=== PATIENT | female | born 1990 | race Caucasian/White ===

== ENCOUNTER 2020-04-07 22:26 | Observation (INO) | payer OTHER, MEDICAID, SELFPAY ==
[2020-04-07 22:51] VITALS: BP 132/71; PULSE 100; RESP 18; TEMP 36.9; O2SAT 100; BMI 24.3
[2020-04-08] VITALS (16 sets, daily range): BP systolic 105–137; BP diastolic 54–94; PULSE 82–118; RESP 14–21; TEMP 36.7–37.6; O2SAT 97–100; BMI 24.3; BMI 26.3
--- NOTE | 2020-04-08 00:31 | ED.SKABFB ---
HPI - Skin/Abscess/Foreign Bdy General Chief complaint: Skin/Abscess/Foreign Body Stated complaint: left hand swelling and redness for past weel Time Seen by Provider: 04/07/20 22:48 Source: patient Mode of arrival: Ambulatory Limitations: no limitations History of Present Illness HPI narrative: 29-year-old female smoker and user of IV drugs presents with a chief complaint of rapidly worsening pain and swelling with redness on the dorsum of her left hand for the past few days. She denies systemic findings such as fever, chills nor nausea or vomiting. She denies any significant history skin infections. States that she had been ?skin popping ?and must have missed. It is hard for her to close her fist and there is notable swelling over the 5th meta carpal. She is otherwise well and free of complaint MD complaint: abscess/boil and discoloration Onset (ago): day(s) Tetanus up to date: unsure Location: L hand Severity: moderate Quality: aching Pain Consistency: constant Relieving factors: rest Exacerbating factors: movement Context: IVDA Associated symptoms: denies other symptoms Treatments prior to arrival: none Related Data Previous Rx's Medication Instructions Recorded ondansetron [Zofran ODT] 4 mg SUBLINGUAL Q6HP PRN #12 odt 09/04/17 Allergies Allergy/AdvReac Type Severity Reaction Status Date / Time Sulfa (Sulfonamide Allergy Unknown Verified 04/08/20 01:51 Antibiotics) [SULFA (SULFONAMIDE ANTIBIOTICS)] Review of Systems Constitutional Constitutional: Denies chills, Denies fatigue, Denies fever(s), Denies frequent falls, Denies lethargy and Denies weakness Eyes Eyes: Denies change in vision, Denies eye discharge, Denies irritation and Denies loss of vision ENT Ears, Nose, Mouth, and Throat: Denies change in voice, Denies dizziness, Denies neck pain, Denies sore throat and Denies throat swelling Cardiovascular Cardiovascular: Denies chest pain, Denies irregular heart rhythm, Denies lightheadedness, Denies palpitations, Denies dyspnea, Denies dyspnea on exertion and Denies orthopnea Respiratory Respiratory: Denies cough, Denies dyspnea, Denies dyspnea on exertion and Denies wheezing Gastrointestinal Gastrointestinal: Denies abdominal pain, Denies change in bowel habits, Denies diarrhea, Denies nausea and Denies vomiting Musculoskeletal Musculoskeletal: Denies neck pain and Denies numbness Integumentary/Breasts Skin/Breast: Denies pruritus, Reports erythema, Denies rash, Reports skin pain, Reports skin swelling and Denies wounds Neurologic Neurologic: Denies behavioral changes, Denies confusion, Denies dizziness, Denies frequent falls, Denies loss of vision, Denies numbness and Denies weakness Psychiatric Psychiatric: Denies anxiety, Denies behavioral changes, Denies confusion, Denies depression, Denies homicidal ideation and Denies suicidal ideation Endocrine Endocrine: Denies fatigue, Denies flushing and Denies palpitations Hematologic/Lymphatic Hematologic/Lymphatic: Denies easy bruising Allergic/Immunologic Allergic/Immunologic: Denies urticaria, Denies throat swelling and Denies wheezing Patient History Social History Smoking Status: Current every day smoker Smoking Status: Current every day smoker alcohol intake frequency: 0-2 drinks per day Substance Use Type: marijuana Exam Narrative Exam Narrative: GENERAL: [29] year old patient appears stated age. Well-nourished, well-developed patient, in mild distress. HEAD: Atraumatic. Normocephalic. EYES: Pupils equal round and reactive. Extraocular motions intact. No scleral icterus. No injection or drainage. ENT: Nose without bleeding, purulent drainage. Throat without erythema, tonsillar hypertrophy or exudate. Airway patent. NECK: Trachea midline. Non tender CARDIOVASCULAR: Regular rate and rhythm without murmurs, gallops, or rubs. RESPIRATORY: Clear to auscultation. Breath sounds equal bilaterally. No wheezes, rales, or rhonchi. GASTROINTESTINAL: Abdomen soft, non-tender, nondistended. EXTREMITIES: Notable swelling on the dorsum of the left hand with induration and possible mild fluctuance over the left 5th metacarpal with significant surrounding erythema, even extending proximal to the wrist. There is pain when palpating on the palmar surface raising the suspicion of a deep space infection. BACK: Nontender without deformity or crepitance. No flank tenderness. NEURO: AOx3. SKIN: Otherwise No rash or erythema of visible areas Initial Vital Signs Initial Vital Signs: Vital Signs Temperature 98.5 F 04/07/20 22:51 Pulse Rate 100 H 04/07/20 22:51 Respiratory Rate 18 04/07/20 22:51 Blood Pressure 132/71 04/07/20 22:51 Pulse Oximetry 100 04/07/20 22:51 Course Orders Ordered: ED Orders 04/08/20 00:35 CT UE LT w con Stat 04/08/20 00:40 Basic Metabolic Panel Stat C-Reactive Protein Quant Stat Complete Blood Count AUTO DIFF Stat 04/08/20 00:45 Urine Culture Stat Urine Drug Screen, Rapid Stat Urine Microscopic Stat 04/08/20 01:27 Blood Culture Stat Discontinued Medications Sodium Chloride (Normal Saline 0.9%) 1,000 mls @ 1,000 mls/hr IV BOLUS ONE Stop: 04/08/20 01:34 Last Infusion: 04/08/20 03:05 Dose: 0 mls/hr Documented by: Admin: 04/08/20 01:54 Dose: 1,000 mls/hr Documented by: MATTHEW Vancomycin HCl/Dextrose (Vancomycin) 2,000 mg in 400 mls @ 200 mls/hr IV NOW ONE Stop: 04/08/20 02:36 Last Admin: 04/08/20 01:54 Dose: 200 mls/hr Documented by: MATTHEW Consultations Consultation #1: Dr. Burkett happy to accept. Vanco, pain meds, NPO, he will see her in the morning. Vital Signs Vital signs: Vital Signs - 8 hr 04/07/20 22:51 04/08/20 00:08 04/08/20 00:30 Temperature 98.5 F Pulse Rate 100 H 105 H 93 H Respiratory Rate 18 Blood Pressure 132/71 130/60 Pulse Oximetry 100 100 98 04/08/20 01:06 Temperature Pulse Rate 91 H Respiratory Rate Blood Pressure Pulse Oximetry MDM - Skin/Abscess/Foreign Bdy Lab Data Result diagrams: 04/08/20 00:40 04/08/20 00:40 Labs: Lab Results 04/08/20 04/08/20 04/08/20 Range/Units 00:40 00:40 00:45 WBC 9.4 (4.5-11.0) X10^3/uL RBC 4.88 (4.0-5.2) X10^6/uL Hgb 13.5 (12.0-16.0) g/dL Hct 41.0 (36-46) % MCV 84.0 (80-100) fL MCH 27.7 (26-34) PG MCHC 33.0 (30-36) % RDW 14.5 (11.6-14.8) % Plt Count 264 (150-400) X10^3/uL Neut % (Auto) 71.3 (50-75) % Lymph % (Auto) 17.0 L (25-40) % [place] % (Auto) 9.5 (3-14) % Eos % (Auto) 1.6 L (2-4) % Baso % (Auto) 0.6 (0-2) % Neut # (Auto) 6700 (8821-8072) /uL Lymph # (Auto) 1600 (2240-9209) /uL [place] # (Auto) 900 (0-900) /uL Eos # (Auto) 200 (0-450) /uL Baso # (Auto) 100 (0-100) /uL Sodium 138 (137-145) mmol/L Potassium 4.0 (3.4-5.1) mmol/L Chloride 99 (98-107) mmol/L Carbon Dioxide 34 H (22-32) mmol/L BUN 11 (7-17) mg/dL Creatinine 0.61 (0.52-1.04) mg/dL Estimated GFR > 60.0 (>60) mL/min BUN/Creatinine Ratio 18.0 (6-22) Glucose 88 (70-100) mg/dL Calcium 9.4 (8.4-10.2) mg/dL C-Reactive Protein 3.2 H (<1.0) mg/dL Urine RBC (0-5/HPF) Urine WBC (0-5/HPF) Ur Squamous Epith Cells (0-5/HPF) Urine Bacteria (None) Hyaline Casts (None) Urine Mucus (Negative) Ur Culture Indicated? U Opiates 300ng/mL cut Positive H (Negative) Ur Oxycodone Screen Negative (Negative) Urine Methadone Screen Negative (Negative) Ur Barbiturates Screen Negative (Negative) U Tricyclic Antidepress Negative (Negative) Ur Phencyclidine Scrn Negative (Negative) Ur Amphetamines Screen Positive H (Negative) U Methamphetamines Scrn Positive H (Negative) Ur MDMA Scrn (Ecstasy) Negative (Negative) U Benzodiazepines Scrn Negative (Negative) Urine Cocaine Screen Negative (Negative) U Marijuana (THC) Screen Positive H (Negative) 04/08/20 Range/Units 00:45 WBC (4.5-11.0) X10^3/uL RBC (4.0-5.2) X10^6/uL Hgb (12.0-16.0) g/dL Hct (36-46) % MCV (80-100) fL MCH (26-34) PG MCHC (30-36) % RDW (11.6-14.8) % Plt Count (150-400) X10^3/uL Neut % (Auto) (50-75) % Lymph % (Auto) (25-40) % [place] % (Auto) (3-14) % Eos % (Auto) (2-4) % Baso % (Auto) (0-2) % Neut # (Auto) (8941-6472) /uL Lymph # (Auto) (3779-3438) /uL [place] # (Auto) (0-900) /uL Eos # (Auto) (0-450) /uL Baso # (Auto) (0-100) /uL Sodium (137-145) mmol/L Potassium (3.4-5.1) mmol/L Chloride (98-107) mmol/L Carbon Dioxide (22-32) mmol/L BUN (7-17) mg/dL Creatinine (0.52-1.04) mg/dL Estimated GFR (>60) mL/min BUN/Creatinine Ratio (6-22) Glucose (70-100) mg/dL Calcium (8.4-10.2) mg/dL C-Reactive Protein (<1.0) mg/dL Urine RBC None seen (0-5/HPF) Urine WBC 5-10/hpf H (0-5/HPF) Ur Squamous Epith Cells 1-5 /hpf (0-5/HPF) Urine Bacteria Few (2-10) H (None) Hyaline Casts 0-1/lpf (None) Urine Mucus 3+ H (Negative) Ur Culture Indicated? Specimen cultured U Opiates 300ng/mL cut (Negative) Ur Oxycodone Screen (Negative) Urine Methadone Screen (Negative) Ur Barbiturates Screen (Negative) U Tricyclic Antidepress (Negative) Ur Phencyclidine Scrn (Negative) Ur Amphetamines Screen (Negative) U Methamphetamines Scrn (Negative) Ur MDMA Scrn (Ecstasy) (Negative) U Benzodiazepines Scrn (Negative) Urine Cocaine Screen (Negative) U Marijuana (THC) Screen (Negative) Point of Care Testing Test Results Negative Urine Dip Bedside Urine Glucose Negative Bedside Urine Bilirubin + 1 Bedside Urine Ketone +/- 5 Urine Specific [place] 1.030 Bedside Urine Occult Blood - Negative Bedside Urine pH 5.5 Bedside Urine Protein + 30 Bedside Urine Urobilinogen - Negative Bedside Urine Nitrite - Negative Bedside Urine Leukocytes +/- [address] UE w/IV Contrast: Radiologist's Impression: Cellulitis of distal forearm and 1.2cm abscess Discharge Plan Departure Patient Disposition: Admitted As Inpatient Clinical Impression: Abscess of dorsum of left hand Admit Date/Time: 04/08/20 03:28 Admit Provider: Jeannette Lemus
--- NOTE | 2020-04-08 00:35 | DI.CT.S_ITS ---
PROCEDURE: CT UE LT W CON INDICATIONS: pain swelling, redness, abscess? TECHNIQUE: After the administration of intravenous contrast, 3 mm axial sections acquired of the left wrist , with coronal and sagittal reformats. COMPARISON: None. FINDINGS: Image quality: Excellent. No fracture or focal osseous destruction. Normal alignment Corticated chronic appearing subcentimeter ossicle seen at the tip of the ulnar styloid. Mild 1st CMC and triscaphe joint degeneration There is dorsal circumferential cellulitis in the subcutaneous soft tissues. 1.2 cm focal fluid collection seen dorsal to the 5th metacarpal on image 158/5, suspicious for abscess. Grossly unremarkable appearance of the flexor and extensor tendons. IMPRESSION: 1.2 cm suspected abscess dorsal to the 5th metacarpal shaft. Diffuse cellulitis involving the distal forearm and dorsal wrist and hand. Findings concordant with the preliminary study interpretation provided at the time of the exam. Dictated by: Ez Lemus M.D. on 04/08/2020 at 8:16 Approved by: Ez Lemus M.D. on 04/08/2020 at 8:22
[2020-04-08 01:16] LABS: RBC Urine None Seen (0-5/HPF)
[2020-04-08 01:21] LABS: Add Manual Diff / Slide Review NO; Basophils Absolute Auto 100 /uL (0-100); Basophils Percent Auto 0.6 % (0-2); Eosinophils Absolute Auto 200 /uL (0-450); Eosinophils Percent Auto 1.6 % (2-4); Hemoglobin 13.5 g/dL (12.0-16.0); Lymphocytes Absolute Auto 1600 /uL (1100-4500); Mean Corpuscular Hemoglobin 27.7 PG (26-34); Monocytes Absolute Auto 900 /uL (0-900); Monocytes Percent Auto 9.5 % (3-14); Neutrophils Absolute Auto 6700 /uL (1500-7000); Neutrophils Percent Auto 71.3 % (50-75); Platelet Count 264 X10^3/uL (150-400); Red Blood Cell Count 4.88 X10^6/uL (4.0-5.2); Red Cell Distribution Width 14.5 % (11.6-14.8); White Blood Cell Count 9.4 X10^3/uL (4.5-11.0)
[2020-04-08 01:22] LABS: Ur Creatinine Normal (Normal); Ur Specific Gravity Normal (Normal); Urine pH Normal (Normal)
[2020-04-08 01:23] LABS: UR Morphine/Opiate cutoff 300 Positive (Negative); Urine Amphetamines Positive (Negative); Urine Barbiturates Negative (Negative); Urine Benzodiazepines Negative (Negative); Urine Cocaine Negative (Negative); Urine MDMA Negative (Negative); Urine Methadone Negative (Negative); Urine Methamphetamines Positive (Negative); Urine Oxycodone Negative (Negative); Urine Phencyclidine Negative (Negative); Urine Tetrahydrocannabinol Positive (Negative); Urine Tricyclic Antidepressant Negative (Negative)
[2020-04-08 01:25] LABS: Squamous Epithelial Cell Urine 1-5 /HPF (0-5/HPF); WBC Urine 5-10/HPF (0-5/HPF)
[2020-04-08 01:26] LABS: Bacteria Urine Few (2-10); Culture Indicated Urine Specimen Cultured; Hyaline Casts Urine 0-1/LPF; Mucus Urine 3+ (Negative)
[2020-04-08 01:29] LABS: Blood Urea Nitrogen 11 mg/dL (7-17); C-Reactive Protein Quant 3.2 mg/dL (<1.0); Calcium 9.4 mg/dL (8.4-10.2); Carbon Dioxide 34 mmol/L (22-32); Chloride 99 mmol/L (98-107); Estimated Glomerular Filt Rate > 60.0 mL/min (>60); Glucose 88 mg/dL (70-100); HEMOLYSIS < 15 (0-50); Sodium 138 mmol/L (137-145)
[2020-04-08] MEDS: SODIUM CHLORIDE 0.9% 1,000 ML 1000 ML IV (01:54)
[2020-04-08] MEDS: VANCOMYCIN 2,000 MG/400 ML PIGGYBACK 200 MG IV (01:54)
[2020-04-08 03:59] LABS: COVID19 -Nasal RAPID Negative (Negative)
[2020-04-08] MEDS: SODIUM CHLORIDE 0.9% 1,000 ML 125 ML IV ×2 (04:19→14:14)
[2020-04-08] MEDS: MORPHINE 2 MG/ML INJ IV ×3 (04:23→14:14)
--- NOTE | 2020-04-08 07:21 | P.HP_ITS ---
History of Present Illness History of Present Illness Date Patient Seen: 04/08/20 Time Patient Seen: 07:22 Chief complaint: left hand swelling and redness for past weel Narrative: 29-year-old female with a left hand abscess. She is right-hand dominant. She uses daily IV drugs and has been skin popping. She reports that she has been having increasing swelling, redness, and pain into the left dorsal hand for the past 3-4 days period finally got so bad that she came into the emergency room last night. She denies any fever or chills or any drainage. She denies any abscesses or pain anywhere else. She was admitted and started on vancomycin. She is still having a fair amount of pain although doing better since she has been admitted. She cannot make a fist. Patient History Family & Social History Social History: household members significant other Prior Living Arrangements Mobile home Safety & Behavioral: Feels Safe in Current Yes Environment Been Physically Hurt or No Threatened By a Person Suicidal Ideation Description None Suicide Plan Description No Plan Tobacco & Substance use: Tobacco type cigarettes,cannabis/marijuana Smoking Status Current every day smoker Smoking packs per day 0.5 alcohol intake current alcohol intake frequency 0-2 drinks per day Substance Use Type marijuana Meds Home Medications and Allergies Home Medications Medication Instructions Recorded Confirmed Type No Known Home Medications 04/08/20 04/08/20 History Allergies Allergy/AdvReac Type Severity Reaction Status Date / Time Sulfa (Sulfonamide Allergy Unknown Verified 04/08/20 01:51 Antibiotics) [SULFA (SULFONAMIDE ANTIBIOTICS)] Review of Systems Constitutional Constitutional: Denies chills and Denies fever(s) Respiratory Respiratory: Denies cough and Denies wheezing Gastrointestinal Gastrointestinal: Denies abdominal pain Genitourinary Genitourinary: Denies difficulty voiding Musculoskeletal Musculoskeletal: Denies tingling Integumentary/Breasts Skin/Breast: Denies rash Neurologic Neurologic: Denies behavioral changes and Denies tingling Psychiatric Psychiatric: Denies behavioral changes Endocrine Endocrine: Denies change in body appearance Hematologic/Lymphatic Hematologic/Lymphatic: Denies easy bleeding Allergic/Immunologic Allergic/Immunologic: Denies wheezing Exam Vital Signs (past 8 hours): - 04/08/20 00:08 04/08/20 00:30 04/08/20 01:06 Temperature Pulse Rate 105 H 93 H 91 H Respiratory Rate Blood Pressure 130/60 Pulse Oximetry 100 98 04/08/20 03:50 Temperature 98.8 F Pulse Rate 89 Respiratory Rate 20 Blood Pressure 123/75 Pulse Oximetry 100 Oxygen Delivery Method Room Air Oxygen Flow Rate 0 Const Orientation: alert and oriented x3 Resp Auscultation: clear to auscultation bilaterally Cardio Rate: regular rate Rhythm: regular rhythm Extrem Other: Left hand 5 cm erythema centered around the dorsal 4th and 5th mid metacarpal. 1.5 cm fluctuant mass over the 5th metacarpal. Intact integument. Easily flexes and extends fingers but painful with trying to make a lubrication technician. Intact sensation through the hand. Good capillary refill distally. Objective Imaging CT scan left-hand: My impression: Shows a 1.5cm fluid collection in the soft tissue on the dorsal aspect of the hand over the middle of the 5th metacarpal. No osteomyelitis changes Labs Result Diagrams: 04/08/20 00:40 04/08/20 00:40 Labs: Laboratory Results - last 24 hr 04/08/20 04/08/20 04/08/20 00:40 00:40 00:45 WBC 9.4 RBC 4.88 Hgb 13.5 Hct 41.0 MCV 84.0 MCH 27.7 MCHC 33.0 RDW 14.5 Plt Count 264 Neut % (Auto) 71.3 Lymph % (Auto) 17.0 L [place] % (Auto) 9.5 Eos % (Auto) 1.6 L Baso % (Auto) 0.6 Neut # (Auto) 6700 Lymph # (Auto) 1600 [place] # (Auto) 900 Eos # (Auto) 200 Baso # (Auto) 100 Sodium 138 Potassium 4.0 Chloride 99 Carbon Dioxide 34 H BUN 11 Creatinine 0.61 Estimated GFR > 60.0 BUN/Creatinine Ratio 18.0 Glucose 88 Calcium 9.4 C-Reactive Protein 3.2 H Urine RBC Urine WBC Ur Squamous Epith Cells Urine Bacteria Hyaline Casts Urine Mucus Ur Culture Indicated? U Opiates 300ng/mL cut Positive H Ur Oxycodone Screen Negative Urine Methadone Screen Negative Ur Barbiturates Screen Negative U Tricyclic Antidepress Negative Ur Phencyclidine Scrn Negative Ur Amphetamines Screen Positive H U Methamphetamines Scrn Positive H Ur MDMA Scrn (Ecstasy) Negative U Benzodiazepines Scrn Negative Urine Cocaine Screen Negative U Marijuana (THC) Screen Positive H COVID-19 PCR 04/08/20 04/08/20 00:45 02:30 WBC RBC Hgb Hct MCV MCH MCHC RDW Plt Count Neut % (Auto) Lymph % (Auto) [place] % (Auto) Eos % (Auto) Baso % (Auto) Neut # (Auto) Lymph # (Auto) [place] # (Auto) Eos # (Auto) Baso # (Auto) Sodium Potassium Chloride Carbon Dioxide BUN Creatinine Estimated GFR BUN/Creatinine Ratio Glucose Calcium C-Reactive Protein Urine RBC None seen Urine WBC 5-10/hpf H Ur Squamous Epith Cells 1-5 /hpf Urine Bacteria Few (2-10) H Hyaline Casts 0-1/lpf Urine Mucus 3+ H Ur Culture Indicated? Specimen cultured U Opiates 300ng/mL cut Ur Oxycodone Screen Urine Methadone Screen Ur Barbiturates Screen U Tricyclic Antidepress Ur Phencyclidine Scrn Ur Amphetamines Screen U Methamphetamines Scrn Ur MDMA Scrn (Ecstasy) U Benzodiazepines Scrn Urine Cocaine Screen U Marijuana (THC) Screen COVID-19 PCR Negative Assessment & Plan Assessment & Plan narrative: Left hand abscess in a patient with IV drug abuse. She has been started on vancomycin. I explained to her that this is large e nough that I recommend surgical irrigation debridement. This is the best way to treat the infection before it spreads further. Risks and benefits of surgery discussed including medical risks with heart attack stroke, DVT, PE, , failure to alleviate infection, ongoing pain, tender nerve injury, need for further surgery. She understands and consents were signed and placed in the chart. We will add her on to today schedule. COVID-19 COVID-19 status: Negative Result date/Date tested (Pos, Neg/Pending): 04/08/20 Quality VTE Deep Vein Thrombosis/Pulmonary Embolism Present on Admission: No
[2020-04-08] MEDS: VANCOMYCIN 1,000 MG/200 ML PIGGYBACK 125 MG IV ×2 (09:31→18:28)
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
[2020-04-08] MEDS: LACTATED RINGERS 1,000 ML 42 ML IV (17:19)
--- NOTE | 2020-04-08 17:30 | PM.PREOP ---
Pre-operative Note COVID-19 COVID-19 status: Negative Result date/Date tested (Pos, Neg/Pending): 04/08/20 Interval Note History & Physical reviewed/Exam performed by Physician: Yes Changes to H&P: No H&P completed within 30 days and has changed as indicated here:: left hand marked
--- NOTE | 2020-04-08 18:24 | SUR.OPER ---
Supine on padded OR bed, head on pillow, arms secured on padded arm boards at <90 degrees abduction, legs uncrossed, safety belt at thigh, tape over blanket over lower legs.
--- NOTE | 2020-04-08 18:32 | PM.OP.1 ---
Operative Date/Time/Diagnoses Date of procedure: 04/08/20 Time of procedure: 18:32 Pre-op diagnosis: Left hand deep abscess Post-op diagnosis: same Procedure & Clinicians Procedure: Incisional debridement of left hand deep abscess Same procedure as scheduled: Yes Indications: 29-year-old female with an abscess in the dorsum of her left hand. It was felt she would benefit from surgical debridement to take care of this. Risks and benefits of surgery discussed appropriate consents obtained. Surgeon: Feliz Burkett Click Yes if Unassisted: Yes Anesthesia Type: General Operative Notes Findings: Purulence Closure Type: non-primary Specimen(s): other (Wound culture) Estimated Blood Loss (mL): 2 Procedure in detail: Patient brought to the operating room and intubated under general anesthesia. Time-out was performed. Her next dose of vancomycin was held for cultures. The left arm was prepped and draped in standard sterile fashion. A 2 cm longitudinal incision was made centered over the abscess over the middle of the 5th metacarpal on the dorsal side. This quickly released approximately 3 mL of purulent material that was cultured and sent to microbiology. This was irrigated. We examined the wound further. There was a deep hole through the soft tissue approximately 1.5 cm in diameter and down over the surface of the extensor tendon but without penetrating through the tendon were down to the bone. This area was sharply debrided with a curette in the superficial tissue. The wound was copiously irrigated. Xeroform gauze was placed into the deep pocket. Nylon sutures were used to root loosely reapproximate the skin with a gauze sticking out. A sterile dressing was placed. She was then extubated and brought to recovery with no complications. Complications: none Post-operative Condition: stable Disposition: PACU Plan for aftercare: Inpatient for IV antibiotics. Awaiting culture results. The hand actually looked better and the surrounding area around the abscess by the time of surgery today so she seems to be responding to the vancomycin and we will keep her on this.
[2020-04-08] MEDS: BUPIVACAINE 0.5% W/ EPI (PF) 30 ML VIAL INJ (18:36)
[2020-04-08] MEDS: SODIUM CHLORIDE 0.9% 1,000 ML, GENTAMICIN 80 MG IRR (18:43)
--- NOTE | 2020-04-08 19:04 | SUR.PHASEI ---
Flat affect, minimal responses to questions asked, L arm elevated on pillows, ice applied. Report to nayan Tariq transported up to room on room air.
--- NOTE | 2020-04-08 19:19 | SUR.PHASEI ---
Pt left with Marciano in room 222, bed low, locked and SCD'S on.
[2020-04-08] MEDS: LACTATED RINGERS 1,000 ML 125 ML IV (19:27)
[2020-04-08] MEDS: DOCUSATE 100 MG CAPSULE PO (20:21)
[2020-04-08] MEDS: HYDROCODONE/ACET 5/325 TABLET 2 TAB PO (22:22)
[2020-04-08] MEDS: HYDROMORPHONE 0.5 MG INJ IV (22:22)
[2020-04-09 00:11] VITALS: BP 108/58; PULSE 112; RESP 16; TEMP 37.2; O2SAT 98
[2020-04-09] MEDS: VANCOMYCIN 1,000 MG/200 ML PIGGYBACK 125 MG IV ×2 (00:48→10:45)
[2020-04-09] MEDS: LACTATED RINGERS 1,000 ML 125 ML IV ×2 (00:51→10:46)
[2020-04-09 05:12] VITALS: BP 111/66; PULSE 103; RESP 16; TEMP 36.9; O2SAT 97
[2020-04-09] MEDS: HYDROCODONE/ACET 5/325 TABLET 2 TAB PO ×3 (05:40→20:00)
--- NOTE | 2020-04-09 05:52 | PC.NURSE ---
Pt slept most of the shift, ice to hand and hand elevated on pillows through the night. Medicated at 0545 with [place] per orders. Pt is moving independently in bed. Yamileth khoury.
--- NOTE | 2020-04-09 07:43 | PM.PNPO.1 ---
Subjective Subjective Date Patient Seen: 04/09/20 Time Patient Seen: 07:43 Interval history: The hand feels different, it is just sharp pain right at the incision site. Exam Vital Signs (past 8 hours): - 04/09/20 00:11 04/09/20 05:12 Temperature 99.0 F 98.5 F Pulse Rate 112 H 103 H Respiratory Rate 16 16 Blood Pressure 108/58 L 111/66 Pulse Oximetry 98 97 Oxygen Delivery Method Room Air Oxygen Flow Rate 0 Const Orientation: alert and oriented x3 Extrem Other: Left hand dressing clean dry intact. easily flexes and extends fingers without difficulty Objective Labs Result Diagrams: 04/08/20 00:40 04/08/20 00:40 Assessment & Plan Post-op Postoperative Procedures: Procedures Operation Date: 04/08/20 17:00 Actual Procedures Side Surgeon p Incision and Drainage Hand Left Feliz Burkett MD status post I&D of left hand abscess. G stain had no organisms and no growth to date on the culture so far. This is presumed Staph as she had responded to the vancomycin with an improvement in her overall hand swelling and erythema between the time I saw her in the morning and in the evening for her surgery. Awaiting culture results. Plan to change dressing tomorrow. If this looks good could possibly discharge home tomorrow or possibly the next day. Quality VTE Deep Vein Thrombosis/Pulmonary Embolism Present on Admission: No
--- NOTE | 2020-04-09 09:20 | PT.IIE ---
Current Diagnoses Cutaneous abscess of left hand (04/08/20) Surgery Performed Operation Date: 04/08/20 17:00 Actual Procedures p Incision and Drainage Hand(Left) - Feliz Burkett MD Physical Therapy Inpatient Evaluation/Re-Eval M1 PT/OT-IP Prior Functional Status Start: 04/09/20 11:23 Freq: NEEDED Status: Active Protocol: Document 04/09/20 09:20 AB (Rec: 04/09/20 11:33 AB [email or web address]) Medical Review Prior Functional Status Medical History Reviewed Yes Communication able to make needs known Mobility and Gait stated that she is independent with all mobilities and ambulation without AD Social History Household Members significant other Living Arrangements Mobile home Number of Floors (Floors) One Floor Number of Stairs To Enter/Railing? 5 steps to enter with B rails Home Environment Standard Height Toilet,Tub/ Shower Home Equipment Shower Seat with Backrest,Hand Held Shower,Grab Bars In Shower M2 PT-IP Current Condition Start: 04/09/20 11:23 Freq: NEEDED Status: Active Protocol: Document 04/09/20 09:20 AB (Rec: 04/09/20 11:33 AB [email or web address]) Physical Therapy Current Condition Current Condition Evaluation Date 04/09/20 Treatment Diagnosis L dosal hand abscess s/p debridement; generalized weakness Onset Date 04/08/20 M3 PT-IP Subjective Start: 04/09/20 11:23 Freq: NEEDED Status: Active Protocol: Document 04/09/20 09:20 AB (Rec: 04/09/20 11:33 AB [id number]) Subjective Physical Therapy Visit Type Type Initial Evaluation Visit Start Time 09:20 Visit Stop Time 10:29 Total Visit Minutes 26 Notes pt seen for split visits: 920 to 932 and 1015 to 1029 Number of ANALYTICAL STATISTICIAN Visits 0 Physical Therapy Visit Comments Patient Comments agreeable to do PT Therapy Pain Assessment Pain When Pain Assessed At Rest Pain Present Pain Present Pain Reported Location left hand Intensity 7 Scale Used Numeric (0 - 10) Pain Management Techniques Apply Cold,Re-positioning, Timing of Activity with Medications M4 PT-IP Mobility and Gait Start: 04/09/20 11:23 Freq: NEEDED Status: Active Protocol: Document 04/09/20 09:20 AB (Rec: 04/09/20 11:33 AB [email or web address]) PT-Bed Mobility Assessment Supine to Sit Supine to Sit Independent Sit to Supine Sit to Supine Independent PT-Transfer Assessment Sit to and From Stand Sit to and from Stand Independent Equipment Transfer Assistive Device None Transfers Transfer Technique Stand Pivot Transfer Ability Level of Assist Standby Assistance Comments Mobility Comments completed supine<>sit independent. sit to stand independent and ambulated towards the stairs without AD SBA for safety. pt presents with slight gait deviation but without LOB. pt completed up /downs stairs using 1 rail SBA . ambulated back to her room SBA. agreed to stay up on chair. positioned on chair. call light and table placed within reach. informed pt that no PT intervention is need at this time. pt agreed and understood. Gait Assessment Gait Gait Assistance Required: Standby Assistance,1 Person Assist Distance (Feet) 300 Able to Maintain Weight Bearing Status Yes During Gait Assistive Devices Assistive Device None Orthotic/Prosthetic Devices or Brace: No Gait Deviations General Gait Pattern Antalgic Stair Climbing Assessment Evaluation Level of Assist On Stairs Standby Assistance Devices Stair Climbing Assistive Devices Right Railing Technique/Endurance Stair Climbing Direction Ascend and Descend Stair Climbing Technique Step Over Step Number of Steps Climbed 3 Query Text: Stair Climbing Set # Repetitions (reps) 2 Comments Stair Climbing Comments completed up/down 3 steps x 2 sets SBA using one rail PT-Balance Assessment Sitting Balance and Reactions Static Sitting Balance Ability Normal Dynamic Sitting Balance Ability Normal Standing Balance and Reactions Static Standing Balance Ability Good Dynamic Standing Balance Ability Good Device Used without AD M5 PT-IP Objective Assessments Start: 04/09/20 11:23 Freq: NEEDED Status: Active Protocol: Document 04/09/20 09:20 AB (Rec: 04/09/20 11:33 AB [email or web address]) Orientation Orientation/Cognition Level of Alertness Alert Orientation Name,Age,Birthday,Month,Date, Year,Day of Week,Place, Situation Safety Awareness Understands Safety Issues Memory Description No Deficits Noted Gross Range of Motion Lower Extremity ROM Assessment Within Functional Limits Strength Lower Extremity Strength Assessment Within Functional Limits Coordination Assessment Gross Coordination Gross Coordination WNL Muscle Tone Muscle Tone WNL Yes M6 PT-IP Treatment Start: 04/09/20 11:23 Freq: NEEDED Status: Active Protocol: Document 04/09/20 09:20 AB (Rec: 04/09/20 11:33 AB [email or web address]) Physical Therapy Treatment Education Education Provided Safety M7 PT-IP Assessment and Plan Start: 04/09/20 11:23 Freq: NEEDED Status: Active Protocol: Document 04/09/20 09:20 AB (Rec: 04/09/20 11:33 AB [id number]) PT Summary Assessment and Plan Potential Rehabilitation Potential Good Status of Condition at Evaluation Stable Summary Impairments Pain,ROM,Strength,Balance, Coordination,Sensation,Tone, Cognition,Bed Mobility, Transfers,Gait,Activity Tolerance Assessment Summary PT eval completed and no further PT intervention indicated at this time. pt is independent with bed mobility , transfers and ambulation SBA for safety and IV management. pt plans to go home. Frequency of Treatment Frequency Of Treatment Discharge Recommendations To Nursing Amount of Assist Needed Standby Assistance Discharge Recommendations PT Discharge Recommendations Home Transportation Needs at Discharge Private Vehicle
[2020-04-09 10:10] LABS: Vancomycin Trough 6.6 ug/mL (10-20)
[2020-04-09] MEDS: DOCUSATE 100 MG CAPSULE PO ×2 (10:44→21:01)
[2020-04-09] MEDS: VANCOMYCIN TROUGH 1 REQUEST MISC (10:45)
[2020-04-09 12:02] VITALS: BP 118/68; PULSE 90; RESP 16; TEMP 36.6; O2SAT 98
--- NOTE | 2020-04-09 12:43 | PC.NURSE ---
Addendum entered by Mere Horn R.N. 04/09/20 15:32: REPORT GIVEN TO AMANDA HERMOSILLO. NOTIFIED JAIMEE THAT FAX WAS SENT TO DR CHOPRA WHO IS IN A CASE, AND HE IS EXPECTED TO CALL BACK TO BE UPDATED ON EVENTS. JAIMEE STATES THAT HE WILL FOLLOW THROUGH WITH THIS. INTERNET ASSESSOR ALSO UPDATED. Addendum entered by Mere Horn R.N. 04/09/20 14:56: LATE ENTRY: FAX WAS SENT TO DR CHOPRA [place] TO BE TAPED TO HIS SURGICAL SUITE TO NOTIFY HIM AT THE CLOSE OF HIS CURRENT CASE. Addendum entered by Mere Horn R.N. 04/09/20 14:54: POLICE CAME IN AND WERE GIVEN A REPORT BY UZIEL CHARGE NURSE AND BY THIS SHAREPOINT ENGINEER. THEY WENT IN AND SPOKE WITH PATIENT. PATIENT GAVE THEM VERBAL CONSENT TO SEARCH HER BAG. ONE OTHER EMPTY SYRINGE WITHOUT NEEDLE CONFISCATED BY POLICE, THE SYRINGE WITH HEROIN WAS ALSO CONFISCATED BY POLICE. POLICE STATE SHE WILL BE CHARGED VIA MAIL. NO ARREST TO BE MADE AT THIS TIME OR AT TIME OF DISCHARGE. PATIENT GAVE THE POLICE HER ADDRESS. PATIENT'S BAG WAS RETURNED TO PATIENT BY CHARGE NURSE AFTER POLICE SEARCH. Addendum entered by Mere Horn R.N. 04/09/20 14:08: THIS NURSE UPDATED INTERNET ASSESSOR. CHARGE NURSE UZIEL SPOKE WITH CASH NEVAREZ, INSTRUCTED TO NOTIFY POLICE. CHARGE NURSE HAS CALLED, POLICE HAVE NOT YET ARRIVED. PATIENT RESTING IN BED, IVF INFUSING. Original Note: PATIENT HAS BEEN PLEASANT AND COOPERATIVE, INCONT OF LARGE AMT OF URINE AFTER SLEEPING UNTIL 0900 THIS AM. PARTIAL ASSIST FOR BED BATH, GOWN CHANGE. SHE BRUSHED HER TEETH AND HAIR, LINENS CHANGED. PATIENT UP TO RECLINER. AT 1200 PATIENT UP TO HAVE BM, WANTED TO SIT ON WINDOW SEAT BENCH, THIS SHAREPOINT ENGINEER NOTED LARGE PURSE SITTING OPEN NEAR PATIENT. THIS SHAREPOINT ENGINEER REQUESTED DIRECTOR RIVER RESTORATION TO OBTAIN VSS AT THIS TIME AND MONITOR FOR SUSPICIOUS ACTIVITY GIVEN PATIENT'S DRUG HX. DIRECTOR RIVER RESTORATION ASKED PATIENT TO MOVE TO RECLINER FOR VS. PATIENT APPEARED TO TUCK SOMETHING UNDER BLANKET/CUSHION OF WINDOW SEAT. DIRECTOR RIVER RESTORATION FOUND SYRINGE THERE FILLED W/ BROWN SUBSTANCE, PATIENT ADMITS TO HEROIN IN SYRINGE. CARE SPECIALIST UZIEL NOTIFIED. RUSS MIGUEL NOTIFIED. PATIENT AGREED TO ALLOW PURSE AND ALL BELONGINGS TO BE PUT IN BELONGINGS BAG AND STORED IN COORDINATOR OFFICE. SYRINGE WAS PLACED IN BIOHAZARD BAG. CARE SPECIALIST DEMARIO MADISON OF C[employer] NEVAREZ IN QUALITY AND CARMEN FOR FURTHER INSTRUCTION. PATIENT BACK TO BED PER HER PREFERENCE. IVF INFUSING.
[2020-04-09 15:47] VITALS: BP 129/76; PULSE 95; RESP 18; TEMP 36.8; O2SAT 99
[2020-04-09] MEDS: HYDROMORPHONE 0.5 MG INJ IV ×4 (16:02→21:55)
[2020-04-09] MEDS: VANCOMYCIN 1,000 MG/200 ML PIGGYBACK 200 MG IV ×2 (18:14→22:14)
[2020-04-09 23:30] VITALS: BP 109/66; PULSE 82; RESP 16; TEMP 36.4; O2SAT 98
[2020-04-10] MEDS: HYDROCODONE/ACET 5/325 TABLET 2 TAB PO ×3 (00:06→07:57)
[2020-04-10] MEDS: HYDROMORPHONE 0.5 MG INJ IV ×5 (00:14→10:37)
--- NOTE | 2020-04-10 01:57 | PC.NURSE ---
Addendum entered by Alton Sanches R.N. 04/10/20 04:06: Pt's boyfriend was asked to leave at 0400. This RN was unaware the pt had a visitor and discovered him when the CLOTH FRAMER was checking on the pt. In light of todays events, this RN felt it was unsafe to have a visitor in this pt's room due to the risk of her being brought drugs. Upon inspection, here were no obvious S/S of illicit drug use. Both the pt and her boyfriend were cooperative - the boyfriend left soon after he was asked to go. Original Note: Pt pleasant/cooperative. Incontinent of large amount of urine at shift start. Pt states she has been laying in a fully soaked bed for, about two hours. Maybe that's why I have the shakes. When asked why she did not call for help, she stated that, I know everyone is busy. The patient was asked to please use her call light for any needs - she stated understanding. Linens/gown changed, partial bed bath given.
[2020-04-10 04:00] VITALS: BP 109/57; PULSE 74; RESP 16; TEMP 35.9; O2SAT 98
[2020-04-10] MEDS: VANCOMYCIN 1,000 MG/200 ML PIGGYBACK 200 MG IV (04:45)
[2020-04-10] MEDS: HYDROCODONE/ACET 5/325 TABLET 1 TAB PO (07:53)
[2020-04-10 08:00] VITALS: BP 117/68; PULSE 60; RESP 16; TEMP 36.3; O2SAT 98
--- NOTE | 2020-04-10 08:18 | PM.PNPO.1 ---
Subjective Subjective Date Patient Seen: 04/10/20 Time Patient Seen: 08:18 Interval history: She is doing better today. The hand feels achy. She is going through some withdrawal but this is been mitigated with the pain medication. Exam Vital Signs (past 8 hours): - 04/10/20 04:00 Temperature 96.6 F L Pulse Rate 74 Respiratory Rate 16 Blood Pressure 109/57 L Pulse Oximetry 98 Oxygen Delivery Method Room Air Oxygen Flow Rate 0 Const Orientation: alert and oriented x3 Extrem Other: Left hand dressing change in packing removed. No drainage. Incision clean. Objective Labs Result Diagrams: 04/08/20 00:40 04/08/20 00:40 Labs: Laboratory Results - last 24 hr 04/09/20 09:38 Vancomycin Trough 6.6 L Assessment & Plan Post-op Postoperative Procedures: Procedures Operation Date: 04/08/20 17:00 Actual Procedures Side Surgeon p Incision and Drainage Hand Left Feliz Burkett MD She is doing well. Her sensitivities of come back and she is sensitive to clindamycin for both bacteria. I will send her home with a prescription for this as well as a small prescription for Vicodin. We will have social Work try to work on setting her up with a drug abstinence local clinic. Quality VTE Deep Vein Thrombosis/Pulmonary Embolism Present on Admission: No
[2020-04-10] MEDS: DOCUSATE 100 MG CAPSULE PO (10:40)
--- NOTE | 2020-04-10 10:50 | PC.NURSE ---
Am shift Pt is c/o of pain to L hand, available medications given. Dc instructions written by Dr Burkett, When reviewing this with Pt, she became quite tearful, What am I going to do with 10 vicodin, I am going to manage my own pain i guess Referencing heroin, Offered social work to see Pt again for d/c opiate treatment. Pt seems willing. Dicussed importance of followup ABX and f/u appt. Pt agreeable. Declined treatment options and requested IV removed for d/c as ride is waiting. Iv removed. Walked downstairs with Pt.
--- NOTE | 2020-04-11 12:23 | CM.SWNOTE ---
MERCHANDISE BUYER Note Late Entry MERCHANDISE BUYER consult received yesterday; patient is an active IVDU, poly substance, Dr Burkett placed consult request to offer sobriety/treatment options. This MERCHANDISE BUYER met w/patient yesterday, reviewed DCP. Patient seemed forthcoming w/this MERCHANDISE BUYER as she indicated she was likely to use upon DC because she relies on drugs to cope at this time. Patient was able to discuss her life experiences in relation to her use, that I'm tired of being on the hook (addiction). Patient recounts sobriety, having her son and moving in with her parents in [place], she recalls relapse and having her son taken from her, patient reverts to blaming CPS it's not right. Patient hopeful she could get into counseling or addiction treatment but not be forced on to Methadone or Suboxone. Patient admits she lives in a truck w/her bf and has a few home bases where she can shower and keep perishable items. Discussed harm reduction strategies that might include; stop using Meth and continue gradual taper of other substances, seek secure housing w/bf (also uses), get into counselor. Encouraged patient to call [facility] and ask about scheduling w/ [facility] in [place] as this might be a good fit. Also encouraged patient to call/walk in at [id number], they are accepting walk ins still (during COVID-19 pandemic) Tuesdays, arrive in parking lot at 0530 for best chance to secure a new assessment. Retured to patient's room to offer [employer] brochure and she had left. VAMSI Echevarria
== END 2020-04-10 11:10 | disposition home or self-care (01) ==
LOC: ED 04-08 03:23 → AC 04-08 03:35
PROVIDERS: Admitting Provider Orthopaedic Surgery; Emergency Provider Emergency Medicine; Referring Provider Emergency Medicine; Visit Provider Orthopaedic Surgery
PROC: (CPT 11042; principal; 2020-04-08 17:00)
DX: L02.512 Cutaneous abscess of left hand (principal); F11.90 Opioid use, unspecified, uncomplicated; F15.90 Other stimulant use, unspecified, uncomplicated; F17.210 Nicotine dependence, cigarettes, uncomplicated
CPT/HCPCS: 11042; 36415; 73201; 80048; 80202; 80305; 81003; 81015; 81025; 85025; 86140; 87040; 87070; 87075; 87077; 87086; 87147; 87186; 87205; 87635; 96365; 96366; 97161; 99284; G0378; J1170; J2250; J2270; J2704; J3010; Q9967

== ENCOUNTER 2020-07-10 15:10 | Emergency (ER) | payer OTHER, MEDICAID, SELFPAY ==
[2020-04-08 03:49] VITALS: BMI 24.3
[2020-07-10 15:22] VITALS: BP 125/68; PULSE 115; RESP 20; TEMP 37.3; O2SAT 100
[2020-07-10 18:28] VITALS: BP 124/69; PULSE 107; O2SAT 94
[2020-07-10] MEDS: SODIUM CHLORIDE 0.9% 1,000 ML 1000 ML IV (19:23)
[2020-07-10 19:26] VITALS: BP 127/60; PULSE 88; RESP 16; TEMP 37.2; O2SAT 100
[2020-07-10 19:26] LABS: Add Manual Diff / Slide Review NO; Basophils Absolute Auto 100 /uL (0-100); Basophils Percent Auto 0.7 % (0-2); Eosinophils Absolute Auto 200 /uL (0-450); Eosinophils Percent Auto 1.3 % (2-4); Hematocrit 36.9 % (36-46); Hemoglobin 12.1 g/dL (12.0-16.0); Lymphocytes Absolute Auto 1500 /uL (1100-4500); Lymphocytes Percent Auto 13.5 % (25-40); Mean Corpuscular HGB Conc 32.9 % (30-36); Mean Corpuscular Hemoglobin 26.8 PG (26-34); Mean Corpuscular Volume 81.6 fL (80-100); Monocytes Absolute Auto 1100 /uL (0-900); Monocytes Percent Auto 9.3 % (3-14); Neutrophils Absolute Auto 8500 /uL (1500-7000); Neutrophils Percent Auto 75.2 % (50-75); Platelet Count 237 X10^3/uL (150-400); Red Blood Cell Count 4.52 X10^6/uL (4.0-5.2); Red Cell Distribution Width 14.7 % (11.6-14.8); White Blood Cell Count 11.3 X10^3/uL (4.5-11.0)
[2020-07-10 19:42] LABS: Lactate (Lactic Acid) 0.8 mmol/L (0.7-2.1)
[2020-07-10 19:44] LABS: Alanine Aminotransferase 6 IU/L (<35); Albumin 3.6 g/dL (3.5-5.0); Albumin Globulin Ratio 0.9 (1.0-2.8); Alkaline Phosphatase 72 U/L (38-126); Aspartate Aminotransferase 15 IU/L (14-36); BUN Creatinine Ratio 13.8 (6-22); Bilirubin Total 0.5 mg/dL (0.2-1.3); Blood Urea Nitrogen 8 mg/dL (7-17); C-Reactive Protein Quant 6.1 mg/dL (<1.0); Calcium 8.9 mg/dL (8.4-10.2); Carbon Dioxide 34 mmol/L (22-32); Chloride 100 mmol/L (98-107); Estimated Glomerular Filt Rate > 60.0 mL/min (>60); Globulin 3.8 g/dL (1.7-4.1); Glucose 107 mg/dL (70-100); HEMOLYSIS < 15 (0-50); Potassium 3.9 mmol/L (3.4-5.1); Sodium 136 mmol/L (137-145); Total Protein 7.4 g/dL (6.3-8.2)
[2020-07-10] MEDS: LIDO 1%/SOD BICARB 8.4% (10ML) 10 ML SYRINGE INJ (19:58)
[2020-07-10] MEDS: KETOROLAC 60 MG/2 ML VIAL 15 MG IV (19:58)
[2020-07-10] MEDS: levoFLOXacin 500 MG/100 ML PIGGYBACK 100 MG IV (20:05)
[2020-07-10] MEDS: MORPHINE 4 MG/ML INJ IV (20:28)
[2020-07-10 20:29] VITALS: BP 127/60; PULSE 103; O2SAT 99
[2020-07-10 20:30] VITALS: PULSE 109; O2SAT 98
[2020-07-10 20:35] LABS: Procalcitonin < 0.05 ng/mL (<0.5)
--- NOTE | 2020-07-10 21:17 | ED_ITS ---
HPI - Skin/Abscess/Foreign Bdy <KUSH Ambrosio - Last Filed: 07/10/20 21:47> General Chief complaint: Skin/Abscess/Foreign Body Stated complaint: abcesses, wants looked at Time Seen by Provider: 07/10/20 18:12 Source: patient Mode of arrival: Ambulatory Limitations: no limitations History of Present Illness HPI narrative: This is a 30-year-old female, smoker, with past medical history significant for abscess in her hand presents to ED with chief complain two abscess in bilateral arms. Patient reports uses heroin by injection and she missed a vein on left dorsal lateral hand and blew the left forearm vein. Patient reports she noticed skin lesion on her left dorsal hand for about a week and right forearm last 2-3 days. Patient denies fever, chills, nausea or vomiting. Patient reports intact sensation distally to the lesion and is able to flex and extend fingers without difficulty. Patient reports pain and feeling fatigued. Patient reports back in March this year, she was taken to OR to get the abscess drained on left hand by orthopedist near where she has another abscess. Related Data Previous Rx's Medication Instructions Recorded levofloxacin 500 mg PO DAILY 7 Days #1 tab 07/10/20 Allergies Allergy/AdvReac Type Severity Reaction Status Date / Time Sulfa (Sulfonamide Allergy Unknown Verified 04/08/20 01:51 Antibiotics) [SULFA (SULFONAMIDE ANTIBIOTICS)] Review of Systems <KUSH Ambrosio - Last Filed: 07/10/20 21:47> Review of Systems Narrative: General: Denies fever, chills, (+) fatigue, malaise, sweats. Cardiovascular: Denies chest pain, palpitations, orthopnea, edema. Gastrointestinal: Denies nausea, vomiting, abdominal pain, diarrhea, constipation, melena. Musculoskeletal: Denies weakness, joint pain or bony pain. Skin: See HPI Patient History <KUSH Ambrosio - Last Filed: 07/10/20 21:47> Medical History Substance abuse (Acute) Social History household members: significant other Smoking Status: Current every day smoker alcohol intake: never Smoking Status: Current every day smoker alcohol intake frequency: 0-2 drinks per day Substance Use Type: heroin and IV drugs Exam <KUSH Ambrosio - Last Filed: 07/10/20 21:47> Narrative Exam Narrative: GEN: Alert, oriented x 3, well nourished, and in no acute distress. Head: Normal cephalic, atraumatic. No scalp or temporal tenderness, palpable mass or rash. EYES: Pupils are equal, round, and reactive to light and accommodation. Extraocular muscles are intact bilaterally. There is no subconjunctival hemorrhage, exudate and sclera non-icteric. ENT: Hearing grossly intact. Mucous membrane moist, no mucosal lesion. Throat without erythema, tonsillar hypertrophy or exudate. Uvula in midline, airway patent. Neck: Trachea in midline. No JVD, non-tender without lymphadenopathy. No masses or thyroid megaly. Supple, non-tender and no meningeal signs. CARDIAC: Normal regular rate and rhythm without murmurs, gallops, or rubs. No chest wall tenderness. No peripheral edema, cyanosis or pallor. Capillary refill is less than 2 seconds. RESPIRATORY: Lungs are clear to auscultate bilaterally. No cough, wheezes, rales, or rhonchi. No stridor, respiratory distress, increase work of breathing, or accessary muscle used. ABD: Abdomen soft, nontender and non-distended. No guarding or rebound tenderness to palpate. Bowel sounds are normal in all 4 quadrants. There is no palpable masses or organomegaly. EXT: Full painless ROM of all extremities with no loss of sensation, strength, effusion or edema. SKIN: Left hand abscess in dorsal lateral metacarpal measure in 7 x 6 cm with fluctuance and small dark scab in the middle with surrounding area with warmth and erythema. Right forearm indurated lesion with erythema, mild swelling, warm to touch measuring 7 x 7.5 cm. Warm, dry, normal color for patient. NEUROLOGICAL: Alert and oriented to place, time and person. Sensation and motor function intact bilaterally. No facial droops, dysphasia. PSYCHIATRIC: Good judgement and reason, without hallucinations, abnormal affect or abnormal behaviors during the examination. Patient is not suicidal. Initial Vital Signs Initial Vital Signs: Vital Signs Temperature 99.1 F 07/10/20 15:22 Pulse Rate 115 H 07/10/20 15:22 Respiratory Rate 07/10/20 15:22 Blood Pressure 125/68 07/10/20 15:22 Pulse Oximetry 100 07/10/20 15:22 <Anita Lazar MD - Last Filed: 07/11/20 03:16> Initial Vital Signs Initial Vital Signs: Vital Signs Temperature 99.1 F 07/10/20 15:22 Pulse Rate 115 H 07/10/20 15:22 Respiratory Rate 07/10/20 15:22 Blood Pressure 125/68 07/10/20 15:22 Pulse Oximetry 100 07/10/20 15:22 Procedures <KUSH Ambrosio - Last Filed: 07/10/20 21:47> Abscess I/D I&D #1: Site: hand (Dorsal hand, ring finger and little finger metacarpal) Side (if applicable): left Local Anesthetic: lidocaine 1% and with bicarb Amount of anesthesia used (mL): 1.5 Technique: incised with #11 blade Amount of fluid expressed (mL): 3 Irrigation: Yes Packing used?: none Scores <KUSH Ambrosio - Last Filed: 07/10/20 21:47> GCS [place] coma scale eye opening: Spontaneous [place] coma scale verbal response: Orientated [place] coma scale motor response: Obey commands Stefan coma scale total score: 15 qSOFA Altered Mental Status (GCS <15): No Respiratory rate greater than/equal to 22: No Systolic blood pressure less than or equal to 100: No qSOFA Total: 0 0-1 Not High Risk 1-3 High risk Course <KUSH Ambrosio - Last Filed: 07/10/20 21:47> Orders Ordered: ED Orders 07/10/20 19:16 C-Reactive Protein Quant Stat Complete Blood Count AUTO DIFF Stat Comprehensive Metabolic Panel Stat Lactate (Lactic Acid) Stat Procalcitonin Stat 07/10/20 20:10 Wound Culture and Gram Stain Stat Discontinued Medications Sodium Chloride (Normal Saline 0.9%) 1,000 mls @ 1,000 mls/hr IV BOLUS ONE Stop: 07/10/20 19:24 Last Infusion: 07/10/20 20:53 Dose: 0 mls/hr Documented by: Admin: 07/10/20 19:23 Dose: 1,000 mls/hr Documented by: GUSTAVO Levofloxacin (Levaquin) 500 mg in 100 mls @ 100 mls/hr IV NOW ONE Stop: 07/10/20 21:00 Last Infusion: 07/10/20 21:13 Dose: 0 mls/hr Documented by: Admin: 07/10/20 20:05 Dose: 100 mls/hr Documented by: GUSTAVO Ketorolac Tromethamine (Toradol) 15 mg IV NOW ONE Stop: 07/10/20 19:51 Last Admin: 07/10/20 19:58 Dose: 15 mg Documented by: GUSTAVO Lidocaine/Sodium Bicarbonate (Buffered Lidocaine 10 Ml Syr) 10 ml INJ NOW ONE Stop: 07/10/20 19:51 Last Admin: 07/10/20 19:58 Dose: 10 ml Documented by: GUSTAVO Morphine Sulfate (Morphine) 4 mg IV NOW ONE Stop: 07/10/20 20:11 Last Admin: 07/10/20 20:28 Dose: 4 mg Documented by: GUSTAVO Vital Signs Vital signs: Vital Signs - 8 hr 07/10/20 19:26 07/10/20 20:29 07/10/20 20:30 Temperature 99.0 F Pulse Rate 88 103 H 109 H Respiratory Rate 16 Blood Pressure 127/60 127/60 Pulse Oximetry 100 99 98 07/10/20 21:22 Temperature 98.8 F Pulse Rate 92 H Respiratory Rate 16 Blood Pressure 120/58 L Pulse Oximetry 97 <Anita Lazar MD - Last Filed: 07/11/20 03:16> Orders Ordered: ED Orders 07/10/20 19:16 C-Reactive Protein Quant Stat Complete Blood Count AUTO DIFF Stat Comprehensive Metabolic Panel Stat Lactate (Lactic Acid) Stat Procalcitonin Stat 07/10/20 20:10 Wound Culture and Gram Stain Stat Discontinued Medications Sodium Chloride (Normal Saline 0.9%) 1,000 mls @ 1,000 mls/hr IV BOLUS ONE Stop: 07/10/20 19:24 Last Infusion: 07/10/20 20:53 Dose: 0 mls/hr Documented by: Admin: 07/10/20 19:23 Dose: 1,000 mls/hr Documented by: GUSTAVO Levofloxacin (Levaquin) 500 mg in 100 mls @ 100 mls/hr IV NOW ONE Stop: 07/10/20 21:00 Last Infusion: 07/10/20 21:13 Dose: 0 mls/hr Documented by: Admin: 07/10/20 20:05 Dose: 100 mls/hr Documented by: GUSTAVO Ketorolac Tromethamine (Toradol) 15 mg IV NOW ONE Stop: 07/10/20 19:51 Last Admin: 07/10/20 19:58 Dose: 15 mg Documented by: GUSTAVO Lidocaine/Sodium Bicarbonate (Buffered Lidocaine 10 Ml Syr) 10 ml INJ NOW ONE Stop: 07/10/20 19:51 Last Admin: 07/10/20 19:58 Dose: 10 ml Documented by: GUSTAVO Morphine Sulfate (Morphine) 4 mg IV NOW ONE Stop: 07/10/20 20:11 Last Admin: 07/10/20 20:28 Dose: 4 mg Documented by: GUSTAVO Vital Signs Vital signs: Vital Signs - 8 hr 07/10/20 19:26 07/10/20 20:29 07/10/20 20:30 Temperature 99.0 F Pulse Rate 88 103 H 109 H Respiratory Rate 16 Blood Pressure 127/60 127/60 Pulse Oximetry 100 99 98 07/10/20 21:22 Temperature 98.8 F Pulse Rate 92 H Respiratory Rate 16 Blood Pressure 120/58 L Pulse Oximetry 97 MDM - Skin/Abscess/Foreign Bdy <KUSH Ambrosio - Last Filed: 07/10/20 21:47> Differential Diagnosis Differential diagnosis: Likely abscess of skin or subcutaneous tissue and cellulitis Medical Records Attestation: I reviewed the patient's medical records. Lab Data Attestation: I reviewed the patient's lab results. Result diagrams: 07/10/20 19:16 07/10/20 19:16 Labs: Lab Results 07/10/20 07/10/20 07/10/20 Range/Units 19:16 19:16 19:16 WBC 11.3 H (4.5-11.0) X10^3/uL RBC 4.52 (4.0-5.2) X10^6/uL Hgb 12.1 (12.0-16.0) g/dL Hct 36.9 (36-46) % MCV 81.6 (80-100) fL MCH 26.8 (26-34) PG MCHC 32.9 (30-36) % RDW 14.7 (11.6-14.8) % Plt Count 237 (150-400) X10^3/uL Neut % (Auto) 75.2 H (50-75) % Lymph % (Auto) 13.5 L (25-40) % [place] % (Auto) 9.3 (3-14) % Eos % (Auto) 1.3 L (2-4) % Baso % (Auto) 0.7 (0-2) % Neut # (Auto) 8500 H (8474-5818) /uL Lymph # (Auto) 1500 (0314-8412) /uL [place] # (Auto) 1100 H (0-900) /uL Eos # (Auto) 200 (0-450) /uL Baso # (Auto) 100 (0-100) /uL Sodium 136 L (137-145) mmol/L Potassium 3.9 (3.4-5.1) mmol/L Chloride 100 (98-107) mmol/L Carbon Dioxide 34 H (22-32) mmol/L BUN 8 (7-17) mg/dL Creatinine 0.58 (0.52-1.04) mg/dL Estimated GFR > 60.0 (>60) mL/min BUN/Creatinine Ratio 13.8 (6-22) Glucose 107 H (70-100) mg/dL Lactate (0.7-2.1) mmol/L Calcium 8.9 (8.4-10.2) mg/dL Total Bilirubin 0.5 (0.2-1.3) mg/dL AST 15 (14-36) IU/L ALT 6 (<35) IU/L Alkaline Phosphatase 72 (38-126) U/L C-Reactive Protein 6.1 H (<1.0) mg/dL Total Protein 7.4 (6.3-8.2) g/dL Albumin 3.6 (3.5-5.0) g/dL Globulin 3.8 (1.7-4.1) g/dL Albumin/Globulin Ratio 0.9 L (1.0-2.8) Procalcitonin < 0.05 (<0.5) ng/mL 07/10/20 Range/Units 19:16 WBC (4.5-11.0) X10^3/uL RBC (4.0-5.2) X10^6/uL Hgb (12.0-16.0) g/dL Hct (36-46) % MCV (80-100) fL MCH (26-34) PG MCHC (30-36) % RDW (11.6-14.8) % Plt Count (150-400) X10^3/uL Neut % (Auto) (50-75) % Lymph % (Auto) (25-40) % [place] % (Auto) (3-14) % Eos % (Auto) (2-4) % Baso % (Auto) (0-2) % Neut # (Auto) (1491-4832) /uL Lymph # (Auto) (7351-3800) /uL Conway # (Auto) (0-900) /uL Eos # (Auto) (0-450) /uL Baso # (Auto) (0-100) /uL Sodium (137-145) mmol/L Potassium (3.4-5.1) mmol/L Chloride (98-107) mmol/L Carbon Dioxide (22-32) mmol/L BUN (7-17) mg/dL Creatinine (0.52-1.04) mg/dL Estimated GFR (>60) mL/min BUN/Creatinine Ratio (6-22) Glucose (70-100) mg/dL Lactate 0.8 (0.7-2.1) mmol/L Calcium (8.4-10.2) mg/dL Total Bilirubin (0.2-1.3) mg/dL AST (14-36) IU/L ALT (<35) IU/L Alkaline Phosphatase (38-126) U/L C-Reactive Protein (<1.0) mg/dL Total Protein (6.3-8.2) g/dL Albumin (3.5-5.0) g/dL Globulin (1.7-4.1) g/dL Albumin/Globulin Ratio (1.0-2.8) Procalcitonin (<0.5) ng/mL Urine Dip Bedside Urine Glucose Negative Bedside Urine Bilirubin - Negative Bedside Urine Ketone - Negative Urine Specific [place] 1.015 Bedside Urine Occult Blood - Negative Bedside Urine pH 6.0 Bedside Urine Protein - Negative Bedside Urine Urobilinogen - Negative Bedside Urine Nitrite - Negative Bedside Urine Leukocytes - Negative Esterase MDM Narrative Medical decision making narrative: Consulted Dr. Lazar for Bedside US and treatment plan for I&D on left hand. No obvious abscess appreciated in right forearm. This is a 30-year-old female who presents to ED with left hand abscess in dorsal lateral metacarpal region and indurated lesion on right forearm. Patient reports uses IV heroin and skin popped in left hand. Left hand abscess with fluctuance with adjacent which is ready for incision and drainage but right forearm is likely having an cellulitis. Initial VS shows tachycardia of 115 bmp with normal limits blood pressure and is afebrile. IV was started with lab draw. Administered NS 1 liter. A very mild leukocytosis of 11.3. Normal lactate and with negative procalcitonin. CRP is 6.1 and otherwise unremarkable chemistry test. Based on previous wound culture, administered Levaquin 500 mg IV (Enterobacter cloacae spp cloac, staphylococcus aureus, and Klebsiella oxytoca). Patient has an allergies to sulfa. Pain was managed with IV Toradol and Morphine 4mg. Left hand was incised and drained (see procedural note) and wound culture is pending. Patient tolerated the procedure well. Patient discharged to home with 7 day course of Levaquin 500 mg q.day dose. Patient advised to return to ED in 2 days for wound recheck since s he does not have primary care physician established. Advised to take [id number] Tylenol and or Motrin as needed for discomfort. Wound dressing change as needed. Warm pack on affected sites and soaking left hand in clean warm water couple of times a day for mode healing. Strict return precautions were discussed with patient and she verbalized understanding in agreement with treatment plan. <Anita Lazar MD - Last Filed: 07/11/20 03:16> Lab Data Labs: Lab Results 07/10/20 07/10/20 07/10/20 Range/Units 19:16 19:16 19:16 WBC 11.3 H (4.5-11.0) X10^3/uL RBC 4.52 (4.0-5.2) X10^6/uL Hgb 12.1 (12.0-16.0) g/dL Hct 36.9 (36-46) % MCV 81.6 (80-100) fL MCH 26.8 (26-34) PG MCHC 32.9 (30-36) % RDW 14.7 (11.6-14.8) % Plt Count 237 (150-400) X10^3/uL Neut % (Auto) 75.2 H (50-75) % Lymph % (Auto) 13.5 L (25-40) % [place] % (Auto) 9.3 (3-14) % Eos % (Auto) 1.3 L (2-4) % Baso % (Auto) 0.7 (0-2) % Neut # (Auto) 8500 H (8546-8127) /uL Lymph # (Auto) 1500 (8493-0195) /uL [place] # (Auto) 1100 H (0-900) /uL Eos # (Auto) 200 (0-450) /uL Baso # (Auto) 100 (0-100) /uL Sodium 136 L (137-145) mmol/L Potassium 3.9 (3.4-5.1) mmol/L Chloride 100 (98-107) mmol/L Carbon Dioxide 34 H (22-32) mmol/L BUN 8 (7-17) mg/dL Creatinine 0.58 (0.52-1.04) mg/dL Estimated GFR > 60.0 (>60) mL/min BUN/Creatinine Ratio 13.8 (6-22) Glucose 107 H (70-100) mg/dL Lactate (0.7-2.1) mmol/L Calcium 8.9 (8.4-10.2) mg/dL Total Bilirubin 0.5 (0.2-1.3) mg/dL AST 15 (14-36) IU/L ALT 6 (<35) IU/L Alkaline Phosphatase 72 (38-126) U/L C-Reactive Protein 6.1 H (<1.0) mg/dL Total Protein 7.4 (6.3-8.2) g/dL Albumin 3.6 (3.5-5.0) g/dL Globulin 3.8 (1.7-4.1) g/dL Albumin/Globulin Ratio 0.9 L (1.0-2.8) Procalcitonin < 0.05 (<0.5) ng/mL 07/10/20 Range/Units 19:16 WBC (4.5-11.0) X10^3/uL RBC (4.0-5.2) X10^6/uL Hgb (12.0-16.0) g/dL Hct (36-46) % MCV (80-100) fL MCH (26-34) PG MCHC (30-36) % RDW (11.6-14.8) % Plt Count (150-400) X10^3/uL Neut % (Auto) (50-75) % Lymph % (Auto) (25-40) % [place] % (Auto) (3-14) % Eos % (Auto) (2-4) % Baso % (Auto) (0-2) % Neut # (Auto) (4006-2066) /uL Lymph # (Auto) (6533-8584) /uL [place] # (Auto) (0-900) /uL Eos # (Auto) (0-450) /uL Baso # (Auto) (0-100) /uL Sodium (137-145) mmol/L Potassium (3.4-5.1) mmol/L Chloride (98-107) mmol/L Carbon Dioxide (22-32) mmol/L BUN (7-17) mg/dL Creatinine (0.52-1.04) mg/dL Estimated GFR (>60) mL/min BUN/Creatinine Ratio (6-22) Glucose (70-100) mg/dL Lactate 0.8 (0.7-2.1) mmol/L Calcium (8.4-10.2) mg/dL Total Bilirubin (0.2-1.3) mg/dL AST (14-36) IU/L ALT (<35) IU/L Alkaline Phosphatase (38-126) U/L C-Reactive Protein (<1.0) mg/dL Total Protein (6.3-8.2) g/dL Albumin (3.5-5.0) g/dL Globulin (1.7-4.1) g/dL Albumin/Globulin Ratio (1.0-2.8) Procalcitonin (<0.5) ng/mL Urine Dip Bedside Urine Glucose Negative Bedside Urine Bilirubin - Negative Bedside Urine Ketone - Negative Urine Specific [place] 1.015 Bedside Urine Occult Blood - Negative Bedside Urine pH 6.0 Bedside Urine Protein - Negative Bedside Urine Urobilinogen - Negative Bedside Urine Nitrite - Negative Bedside Urine Leukocytes - Negative Esterase Discharge Plan Departure Patient Disposition: Home Clinical Impression: Abscess of hand, Cellulitis of forearm, right Discharge Date/Time: 07/10/20 21:23 Instructions: DI for Cellulitis -- Adult, DI for Incision and Drainage of a Skin Abscess Activity Restrictions/Additional Instructions: You have been diagnosed with [right forearm cellulitis and left hand abscess which was incised and drained. Wound culture is pending. You are cover with antibiotic medication based on previous wound culture results. You were given 1st dose of Levaquin in ED. please continue daily for next 7 days from tomorrow. You can use [id number] Tylenol and or Motrin as needed for discomfort. Tylenol 650-1000 mg up to 3 to 4 times a day as needed for pain. Ibuprofen/Motrin 400-600 mg up to 3 to 4 times a day as needed for pain with food to decrease GI irritation.]. What to do: *Take your medications as directed. Please use warm pack on bilateral arm several times a day to promote healing. Clean Warm water soak on left hand a couple of times a day and uses dressing to catch drainage. * please return to ED in 2 days for wound recheck. Let them know you were seen in the ED and that we asked you to be seen in follow up. *Return to ED if you have any new, worsening, or concerning symptoms, such as [fever/chills, worsening pain, chest pain, breathing difficulty, weakness/numbness/tingling on affected hand, increasing redness/warmth/swelling on infection site.]. Prescriptions: New levofloxacin 500 mg tablet 500 mg PO DAILY 7 Days Qty: 1 RF: 0 Referrals: [facility] [Outside] <Anita Lazar MD - Last Filed: 07/11/20 03:16> [facility]: I was immediately available in the department for consultation throughout this patient's visit. I agree with documentation as above. Anita Lazar MD
[2020-07-10 21:22] VITALS: BP 120/58; PULSE 92; RESP 16; TEMP 37.1; O2SAT 97
== END 2020-07-10 21:23 | disposition home or self-care (01) ==
PROVIDERS: Emergency Provider Nurse Practitioner Family
DX: L02.512 Cutaneous abscess of left hand (principal); L03.113 Cellulitis of right upper limb
CPT/HCPCS: 10060; 36415; 80053; 81003; 83605; 84145; 85025; 86140; 87070; 87075; 87077; 87147; 87186; 87205; 96361; 96365; 96375; 99284; J1885; J1956; J2270

== ENCOUNTER 2021-11-01 14:50 | Emergency (ER) | payer OTHER, MEDICAID, SELFPAY ==
[2020-04-08 03:49] VITALS: BMI 24.3
[2021-11-01 14:54] VITALS: BP 150/87; PULSE 84; RESP 17; TEMP 37.2; O2SAT 100; BMI 24.3
--- NOTE | 2021-11-01 16:23 | CM.SWNOTE ---
Social Work Note: Patient is 31yo Female presented to ED for medical attention related to oral/facial swelling. Patient has chronic history of IVDU, heroin with last use reported as this morning. Patient and pt's boyfriend are homeless and currently residing [place]. Patient declines information about housing assistance or shelters we want to stay in our car. Patient jokingly states the help she needs is to make a ton of money. Patient reported her EBT assistance is not lasting as long as it used to I guess because food prices are so high right now. Patient did request information about food kulkarni or drives in local community. Patient reports I don't plan on using forever but also states she is not contemplating discontinuing IVDU in the near future. Patient declines assistance with accessing detox or inpatient rehab. Patient will take information re: [facility] where there is also dental care available. CLINICAL EDUCATION CONSULTANT provided dental clinic information as well as information on two local food drives that happen weekly and biweekly. Patient declined to discuss her current or historical drug use or treatment for such. [facility]
[2021-11-01] MEDS: OXYCODONE IR 5 MG TABLET PO (16:34)
[2021-11-01 16:39] LABS: Add Manual Diff / Slide Review NO; Basophils Absolute Auto 100 /uL (0-100); Basophils Percent Auto 0.6 % (0-2); Eosinophils Absolute Auto 100 /uL (0-450); Eosinophils Percent Auto 0.7 % (2-4); Hematocrit 35.6 % (36-46); Hemoglobin 11.8 g/dL (12.0-16.0); Lymphocytes Absolute Auto 2300 /uL (1100-4500); Lymphocytes Percent Auto 26.6 % (25-40); Mean Corpuscular HGB Conc 33.2 % (30-36); Mean Corpuscular Hemoglobin 27.4 PG (26-34); Mean Corpuscular Volume 82.7 fL (80-100); Monocytes Absolute Auto 1000 /uL (0-900); Monocytes Percent Auto 11.1 % (3-14); Neutrophils Absolute Auto 5300 /uL (1500-7000); Platelet Count 270 X10^3/uL (150-400); Red Blood Cell Count 4.31 X10^6/uL (4.0-5.2); Red Cell Distribution Width 14.5 % (11.6-14.8); White Blood Cell Count 8.7 X10^3/uL (4.5-11.0)
[2021-11-01 16:45] VITALS: BP 141/90; PULSE 61; RESP 8; O2SAT 100
--- NOTE | 2021-11-01 16:58 | ED.SKABFB ---
HPI - Skin/Abscess/Foreign Bdy <Keaton Lemus PA-C - Last Filed: 11/01/21 18:37> General Chief complaint: Skin/Abscess/Foreign Body Stated complaint: face is swollen Time Seen by Provider: 11/01/21 15:41 Source: patient Mode of arrival: Ambulatory History of Present Illness HPI narrative: Patient is a 31-year-old female with history of IV drug use presenting to the emergency department today for facial swelling. She states that she has multiple dental caries and broken teeth and explains that she began to experience left upper facial swelling and right lower facial swelling over the past couple of days. She states that there is more tenderness on the right side of her face than the left side of her face. She denies fever, chills, chest pain, cough, shortness of breath, nausea, vomiting, diarrhea, dysuria, abdominal pain, hematuria, throat swelling, difficulty breathing, or any other concerning symptoms. No further concerns reports at this time. Related Data Previous Rx's Medication Instructions Recorded clindamycin HCl 300 mg capsule 300 mg PO Q6H #30 cap 11/01/21 clindamycin HCl 300 mg capsule 300 mg PO Q6H #30 cap 11/01/21 Allergies Allergy/AdvReac Type Severity Reaction Status Date / Time Sulfa (Sulfonamide Allergy Unknown Verified 11/01/21 14:57 Antibiotics) [SULFA (SULFONAMIDE ANTIBIOTICS)] Review of Systems <Keaton Lemus PA-C - Last Filed: 11/01/21 18:37> Constitutional Constitutional: Denies chills, Denies fatigue, Denies fever(s), Denies frequent falls, Denies lethargy and Denies weakness Eyes Eyes: Denies loss of vision ENT Ears, Nose, Mouth, and Throat: Denies change in voice, Reports dental pain, Denies dysphagia, Denies dizziness, Reports facial pain, Denies neck pain, Denies sore throat, Denies throat swelling and Reports other (Of dental caries) Cardiovascular Cardiovascular: Denies chest pain, Denies irregular heart rhythm, Denies lightheadedness, Denies palpitations, Denies dyspnea, Denies dyspnea on exertion and Denies orthopnea Respiratory Respiratory: Denies cough, Denies dyspnea, Denies dyspnea on exertion and Denies wheezing Gastrointestinal Gastrointestinal: Denies abdominal pain, Denies change in bowel habits, Denies dysphagia, Denies diarrhea, Denies nausea and Denies vomiting Genitourinary Genitourinary: Denies hematuria, Denies flank pain, Denies urinary incontinence and Denies urinary urgency Musculoskeletal Musculoskeletal: Denies back pain, Denies muscle weakness, Denies neck pain, Denies numbness and Denies tingling Integumentary/Breasts Skin/Breast: Denies pruritus, Denies erythema, Denies rash and Denies wounds Neurologic Neurologic: Denies behavioral changes, Denies confusion, Denies dizziness, Denies frequent falls, Denies loss of vision, Denies numbness, Denies tingling and Denies weakness Psychiatric Psychiatric: Denies behavioral changes and Denies confusion Endocrine Endocrine: Denies fatigue and Denies palpitations Allergic/Immunologic Allergic/Immunologic: Denies throat swelling and Denies wheezing Patient History <Keaton Lemus PA-C - Last Filed: 11/01/21 18:37> Medical History Substance abuse Social History household members: significant other Smoking Status: Current every day smoker alcohol intake: never Smoking Status: Current every day smoker alcohol intake frequency: 0-2 drinks per day Substance Use Type: marijuana, heroin and IV drugs Exam <Keaton Lemus PA-C - Last Filed: 11/01/21 18:37> Narrative Exam Narrative: GENERAL: 31 year old patient appears stated age. Well-developed patient, in mild distress. HEAD: Atraumatic. Normocephalic. Swelling noted to the left maxilla and right jaw. EYES: Pupils equal round and reactive. Extraocular motions intact. No scleral icterus. No injection or drainage. ENT: Nose without bleeding, purulent drainage. Throat without erythema, tonsillar hypertrophy or exudate. Airway patent. No appreciable abscess formation across gingiva. Poor dentition throughout with multiple cracked and broken teeth and dental caries. Uvula is midline no appreciable abscess formation along the gumline. No peritonsillar or retropharyngeal abscess appreciated. NECK: Trachea midline. Non tender CARDIOVASCULAR: Regular rate and rhythm without murmurs, gallops, or rubs. RESPIRATORY: Clear to auscultation. Breath sounds equal bilaterally. No wheezes, rales, or rhonchi. GASTROINTESTINAL: Abdomen soft, non-tender, nondistended. EXTREMITIES: No edema or joint tenderness. BACK: Nontender without deformity or crepitance. No flank tenderness. NEURO: AOx3. SKIN: No rash or erythema of visible areas Initial Vital Signs Initial Vital Signs: Vital Signs Temperature 99 F 11/01/21 14:54 Pulse Rate 84 11/01/21 14:54 Respiratory Rate 17 11/01/21 14:54 Blood Pressure 150/87 H 11/01/21 14:54 Pulse Oximetry 100 11/01/21 14:54 <Natalie King DO - Last Filed: 11/02/21 20:07> Initial Vital Signs Initial Vital Signs: Vital Signs Temperature 99 F 11/01/21 14:54 Pulse Rate 84 11/01/21 14:54 Respiratory Rate 17 11/01/21 14:54 Blood Pressure 150/87 H 11/01/21 14:54 Pulse Oximetry 100 11/01/21 14:54 Course <Keaton Lemus PA-C - Last Filed: 11/01/21 18:37> Course Course Narrative: CBC, CMP, had CT of the facial bones without IV contrast ordered. Patient would prefer to leave the emergency department prior to results of CMP as the lab studies were hemolyzed. Additionally, she states she did not want to wait in the emergency department for the PICC nurse to obtain IV access for her CT. Orders Ordered: Discontinued Medications Clindamycin HCl (Clindamycin 150 Mg Capsule) 300 mg PO NOW ONE Stop: 11/01/21 16:58 Last Admin: 11/01/21 17:11 Dose: 300 mg Documented by: SOPHIA Oxycodone HCl (Oxycodone Ir 5 Mg Tablet) 5 mg PO NOW ONE Stop: 11/01/21 16:00 Last Admin: 11/01/21 16:34 Dose: 5 mg Documented by: SOPHIA Vital Signs Vital signs: Vital Signs - 8 hr 11/01/21 14:54 11/01/21 16:45 11/01/21 17:00 Temperature 99 F Pulse Rate 84 61 60 Respiratory Rate 17 8 L 15 Blood Pressure 150/87 H 141/90 H 140/87 Pulse Oximetry 100 100 100 <DO Ivy Brown Last Filed: 11/02/21 20:07> Orders Ordered: Discontinued Medications Clindamycin HCl (Clindamycin 150 Mg Capsule) 300 mg PO NOW ONE Stop: 11/01/21 16:58 Last Admin: 11/01/21 17:11 Dose: 300 mg Documented by: SOPHIA Oxycodone HCl (Oxycodone Ir 5 Mg Tablet) 5 mg PO NOW ONE Stop: 11/01/21 16:00 Last Admin: 11/01/21 16:34 Dose: 5 mg Documented by: SOPHIA Vital Signs Vital signs: Vital Signs - 8 hr 11/01/21 14:54 11/01/21 16:45 11/01/21 17:00 Temperature 99 F Pulse Rate 84 61 60 Respiratory Rate 17 8 L 15 Blood Pressure 150/87 H 141/90 H 140/87 Pulse Oximetry 100 100 100 MDM - Skin/Abscess/Foreign Bdy <Keaton Lemus PA-C - Last Filed: 11/01/21 18:37> Lab Data Result diagrams: 11/01/21 16:30 11/01/21 16:30 Labs: Lab Results 11/01/21 11/01/21 Range/Units 16:30 16:30 WBC 8.7 (4.5-11.0) X10^3/uL RBC 4.31 (4.0-5.2) X10^6/uL Hgb 11.8 L (12.0-16.0) g/dL Hct 35.6 L (36-46) % MCV 82.7 (80-100) fL MCH 27.4 (26-34) PG MCHC 33.2 (30-36) % RDW 14.5 (11.6-14.8) % Plt Count 270 (150-400) X10^3/uL Neut % (Auto) 61.0 (50-75) % Lymph % (Auto) 26.6 (25-40) % Mayes % (Auto) 11.1 (3-14) % Eos % (Auto) 0.7 L (2-4) % Baso % (Auto) 0.6 (0-2) % Neut # (Auto) 5300 (9493-8741) /uL Lymph # (Auto) 2300 (8494-0752) /uL Mayes # (Auto) 1000 H (0-900) /uL Eos # (Auto) 100 (0-450) /uL Baso # (Auto) 100 (0-100) /uL Sodium Cancelled Potassium Cancelled Chloride Cancelled Carbon Dioxide Cancelled BUN Cancelled Creatinine Cancelled Estimated GFR Cancelled BUN/Creatinine Ratio Cancelled Glucose Cancelled Calcium Cancelled Total Bilirubin Cancelled AST Cancelled ALT Cancelled Alkaline Phosphatase Cancelled Total Protein Cancelled Albumin Cancelled Globulin Cancelled Albumin/Globulin Ratio Cancelled MDM Narrative Medical decision making narrative: Differential diagnosis to consider but not limited to dental abscess versus dacryocystitis versus retropharyngeal abscess versus peritonsillar abscess versus dental caries. Discussed plan to obtain CT scan of facial bones with IV contrast with patient. We were unable to obtain IV access on the patient and she states that she did not want to stay for 2-3 more hours for the PICC nurse to come and obtain IV access. She states that she would be comfortable being discharged with a prescription for antibiotics. Social work has been in communication with the patient to help set up dental follow-up, and I urged the patient to follow-up with a dentist as soon as possible for further evaluation. I also stressed the importance of having the patient complete the full course of antibiotics. She expresses understanding and agrees to plan. She states that this time she is comfortable being discharged home. I stressed the importance of having the patient return to the emergency department if she experiences fever, worsening swelling, increasing pain, throat swelling, difficulty breathing, or any other concerning symptoms. I reiterated to the patient that we would be happy to obtain CT imaging if she would prefer to wait in the emergency department and we would be happy to complete the imaging if she were to return for further evaluation. <Natalie King, DO - Last Filed: 11/02/21 20:07> Lab Data Labs: Lab Results 11/01/21 11/01/21 Range/Units 16:30 16:30 WBC 8.7 (4.5-11.0) X10^3/uL RBC 4.31 (4.0-5.2) X10^6/uL Hgb 11.8 L (12.0-16.0) g/dL Hct 35.6 L (36-46) % MCV 82.7 (80-100) fL MCH 27.4 (26-34) PG MCHC 33.2 (30-36) % RDW 14.5 (11.6-14.8) % Plt Count 270 (150-400) X10^3/uL Neut % (Auto) 61.0 (50-75) % Lymph % (Auto) 26.6 (25-40) % Mayes % (Auto) 11.1 (3-14) % Eos % (Auto) 0.7 L (2-4) % Baso % (Auto) 0.6 (0-2) % Neut # (Auto) 5300 (2046-2957) /uL Lymph # (Auto) 2300 (0489-3582) /uL Mayes # (Auto) 1000 H (0-900) /uL Eos # (Auto) 100 (0-450) /uL Baso # (Auto) 100 (0-100) /uL Sodium Cancelled Potassium Cancelled Chloride Cancelled Carbon Dioxide Cancelled BUN Cancelled Creatinine Cancelled Estimated GFR Cancelled BUN/Creatinine Ratio Cancelled Glucose Cancelled Calcium Cancelled Total Bilirubin Cancelled AST Cancelled ALT Cancelled Alkaline Phosphatase Cancelled Total Protein Cancelled Albumin Cancelled Globulin Cancelled Albumin/Globulin Ratio Cancelled Discharge Plan Departure Patient Disposition: Home Clinical Impression: Dental infection, Dental caries Instructions: DI for Dental Pain Activity Restrictions/Additional Instructions: *You have been diagnosed with dental infection, dental caries *What to do: *Please continue to take your regular medications as directed. [X] New medication prescriptions sent to your pharmacy: [facility] - Clindamycin [ ] New medication written as a paper prescription [ ] No new medications given You are evaluated emergency department today for facial swelling and dental pain. I have prescribed you a course of antibiotics to improve your dental infection. I have sent this prescription to [facility] in [place]. Please take this antibiotic as directed in complete the full course. It is important that you follow-up with a dentist as soon as possible for further evaluation and treatment. Please follow-up with primary care within the next 2-3 days for further evaluation. Do not hesitate to return to the emergency department if you experience fever, worsening dental pain, increasing swelling, or any other concerning symptoms. *Please follow up with your primary care provider in 2-3 days, call for an appointment. Let them know you were seen in the Emergency Department and that we ask that you be seen in follow up. We will electronically transmit a record of today's note if your PCP is in our system *If you do not have a primary care provider please contact the [facility] Resource line at [phone]. They will ask some questions about your medical history and help get you set up with a doctor in the community. *Return to Emergency Department if you should have any new, worsening or concerning symptoms, such as fever greater than 101 F, shaking chills, worsening pain, persistent vomiting or other bothersome symptoms. Prescriptions: New clindamycin HCl 300 mg capsule 300 mg PO Q6H Qty: 30 0RF clindamycin HCl 300 mg capsule 300 mg PO Q6H Qty: 30 0RF <Natalie King, DO - Last Filed: 11/02/21 20:07> Cosign ED Attending Cosjebature Attestation: I was immediately available in the department for consultation. Documentation has been reviewed. Case was discussed with myself. Patient was seen and evaluated independently. Patient does have bilateral the lower jaw, no erythema no obvious area of fluctuance. There was discussion about obtaining additional imaging there is no warmth or erythema but patient was difficult for IV access waiting for DI access and patient elects not to stay. Patient was started on oral antibiotics with return precautions.
[2021-11-01 17:00] VITALS: BP 140/87; PULSE 60; RESP 15; O2SAT 100
[2021-11-01] MEDS: CLINDAMYCIN 150 MG CAPSULE 300 MG PO (17:11)
--- NOTE | 2021-11-01 17:21 | PC.NURSE ---
Unable to obtain IV access, pt declining PICC. Pt has been discharged.
== END 2021-11-01 17:24 | disposition home or self-care (01) ==
PROVIDERS: Emergency Provider Physician Assistant
DX: K04.7 Periapical abscess without sinus (principal); K02.9 Dental caries, unspecified; F17.200 Nicotine dependence, unspecified, uncomplicated; Z88.2 Allergy status to sulfonamides
CPT/HCPCS: 70487; 85025; 99283